=== PATIENT | female | born 1950 | race Caucasian/White ===

== ENCOUNTER 2019-11-15 08:06 | Emergency (ER) | payer MEDICARE, BC ==
--- NOTE | 2019-11-15 08:26 | EDM.PDOC ---
ED HPI GENERAL MEDICAL PROBLEM - General Chief Complaint: ENT Problem Stated Complaint: NOSE BLEED Time Seen by Provider: 11/15/19 08:10 Source of Information: Reports: Patient History Limitations: Reports: Other (no old records). Denies: No Limitations - History of Present Illness INITIAL COMMENTS - FREE TEXT/NARRATIVE: 69 yo female visiting from [facility] developed spontaneous R sided nose bleed about an hour prior to arrival via EMS. Is on a baby ASA daily and is a smoker. Has a pHx of CA. Has HTN and says he BP usually runs about 130's. She bent over to get something out of her suitcase and her nose started bleeding. Bleeding is down the back of her throat as well as out the front. Onset: Today, Sudden Onset Date: 11/15/19 Onset Time: 07:00 Duration: Hour(s): (1) Location: Reports: Face (R nares) Quality: Reports: Other (painless) Severity: Severe Improves with: Reports: None Worsens with: Reports: None Context: Reports: Other (See HPI) Associated Symptoms: Reports: No Other Symptoms Treatments OFFICE EQUIPMENT TECHNICIAN: Reports: Other (see below) (nasal clamp) - Related Data Allergies Allergy/AdvReac Type Severity Reaction Status Date / Time No Known Allergies Allergy Verified 11/15/19 08:37 Home Meds: Home Meds Aspirin 1 tab PO DAILY 11/15/19 [History] Simvastatin [Zocor] 1 tab PO DAILY 11/15/19 [History] atenoloL [Atenolol] 1.5 tab PO DAILY 11/15/19 [History] ED ROS ENT - Review of Systems Review Of Systems: See Below Constitutional: Reports: No Symptoms HEENT: Reports: Nosebleed (R anterior and posterior). Denies: Nose Pain Respiratory: Reports: No Symptoms Cardiovascular: Reports: No Symptoms GI/Abdominal: Reports: No Symptoms Musculoskeletal: Reports: No Symptoms Skin: Reports: No Symptoms Neurological: Reports: No Symptoms ED EXAM, ENT - Physical Exam Exam: See Below Exam Limited By: No Limitations General Appearance: Alert, WD/WN, Mild Distress Eye Exam: Bilateral Eye: Normal Inspection Ears: Normal External Exam, Normal Canal, Hearing Grossly Normal Nose: Active Bleeding (R anterior and posterior). No: No Blood, Clear Rhinorrhea, Nasal Deformity, Nasal Tenderness Mouth/Throat: Normal Inspection, Normal Lips, Other (active bleeding from R nasopharyngeal area) Head: Atraumatic, Normocephalic Neck: Normal Inspection Cardiovascular: Regular Rate, Rhythm, No Edema Back: Normal Inspection Extremities: Normal Inspection, Normal Range of Motion, Non-Tender, No Pedal Ed krish Neurological: Alert, Oriented, CN II-XII Intact, Normal Cognition, No Motor/Sensory Deficits Psychiatric: Normal Affect, Normal Mood Skin: Warm, Dry, Intact, Normal Color, No Rash ED ENT PROCEDURES - Epistaxis Procedure Indication: Epistaxis, Uncontrolled Recent anticoagulants/antiplatlets: Yes (ASA 81 mg qd) Uncontrolled HTN: No Recent septal/nasal surgery: No Site of bleeding: Right Nare, Posterior Clearing of clots: Patient Blew Nose Ice pack to area: No Posterior packing: Long Inflatable Nasal Tampon (7.5 cm RhinoRocket placed with hemostasis achieved) Complications: No Course - Vital Signs Last Recorded V/S: Last Vital Signs Temp 36.5 C 11/15/19 08:49 Pulse 85 11/15/19 09:04 Resp 20 11/15/19 08:49 BP 178/80 H 11/15/19 09:04 Pulse Ox 97 11/15/19 08:49 - Orders/Labs/Meds Meds: Medications Discontinued Medications Generic Name Dose Route Start Last Admin Trade Name Freq PRN Reason Stop Dose Admin Atenolol 25 mg 11/15/19 08:55 11/15/19 09:04 Tenormin PO 11/15/19 08:56 25 mg ONETIME ONE Administration Departure - Departure Time of Disposition: 09:30 Disposition: Home, Self-Care 01 Condition: Fair Clinical Impression: Posterior epistaxis - Discharge Information *PRESCRIPTION DRUG MONITORING PROGRAM REVIEWED*: No *COPY OF PRESCRIPTION DRUG MONITORING REPORT IN PATIENT ROSALIE: No Referrals: PCP,None [Primary Care Provider] - Forms: ED Department Discharge Additional Instructions: Hold your aspirin. Recheck with your provider in 2 days for removal of your Rhino Rocket. Keep your head above your heart to reduce the risk of rebleeding. Make sure you take any prescribed BP medications. Return as needed. You may take acetaminophen as needed for pain relief, avoid ibuprofen or naproxen or aspirin. Sepsis Event Note (ED) - Focused Exam Vital Signs: Vital Signs Temp Pulse Pulse Resp BP BP Pulse Ox 11/15/19 09:04 85 178/80 H 11/15/19 08:53 85 178/80 H 11/15/19 08:49 36.5 C 93 20 186/107 H 97 11/15/19 08:12 36.5 C 93 20 186/107 H 97
[2019-11-15] MEDS ORDERED: Atenolol 25 MG Tab PO ONE (08:55)
== END 2019-11-15 09:51 | disposition home or self-care (01) ==
LOC: JP.ED 08:06
DX: R04.0 Epistaxis (principal); I10 Essential (primary) hypertension; F17.200 Nicotine dependence, unspecified, uncomplicated; Z79.82 Long term (current) use of aspirin; Z79.899 Other long term (current) drug therapy
CPT/HCPCS: 30905; 99284; A9270